=== PATIENT | female | born 1990 | race Caucasian/White ===

== ENCOUNTER 2017-12-10 18:37 | Emergency (ER) | payer OTHER ==
--- NOTE | 2017-12-10 19:33 | PD ---
HPI Chief Complaint Excessive watery vaginal discharge Date Seen: Dec 10, 2017 Time Seen: 19:25 Travel History International Travel<30 Days: No Contact w/Intl Traveler<30Days: No Known Affected Area: No History of Present Illness HPI 27-year-old white female at [address] Hurtado care presents combining of excessive watery vaginal discharge that she's noticed for some time but today was excessive and then went through her underwear and pain it's when she was at work today. Denies any bleeding. No abdominal pain and she says the baby is active Weeks Gestation: 21 Para: 1 : 3 Last Menstrual Period: Dec 10, 2017 Miscarriage: 1 History Obstetric History Obstetric History Vaginal delivery Social History Alcohol Use: No Tobacco Use: No Substance Abuse: No Review of Systems General / Constitutional: No: Fever, Weight Gain, Chills, Other Eyes: No: Diploplia, Blurred Vision, Visual changes, Pain, Photophobia HENT: No: Headaches, Vertigo, Lightheadedness Cardiovascular: No: Irregular Rhythm, Chest Pain or Discomfort, Palpitations, Tachycardia, Syncope, Varicosities, Edema, Cyanosis Respiratory: No: Cough, Short of Breath, Other Gastrointestinal: No: Nausea, Vomiting, Diarrhea Genitourinary: Discharge, No: Decreased Urinary Output, Oliguria Musculoskeletal: No: Limited ROM, Weakness, Cramping, Edema, Pain Skin: No Rash, No Itching, No Dryness, No Lumps, No Change in Pigmentation, No Change in Nails, No Alopecia, No Lesions Neurologic: No: Weakness, Dizziness, Syncope, Focal Abnormalities, Coordination Problem, Headache, Slurred Speech, Seizures Psychiatric: No: Depression, Suicidal Ideations, Homicidal Ideation Endocrine: No: Heat Intolerance, Cold Intolerance, Polydipsia, Polyuria, Other Physical Exam Narrative GENERAL: Well-nourished, well-developed patient. SKIN: Warm and dry. HEAD: Normocephalic and atraumatic. EYES: No scleral icterus. No injection or drainage. ENT: No nasal drainage noted. Mucous membranes pink. Airway patent. NECK: Supple, trachea midline. No JVD. CARDIOVASCULAR: Regular rate and rhythm without murmurs, gallops, or rubs. RESPIRATORY: Breath sounds equal bilaterally. No accessory muscle use. BREASTS: Bilateral exam showed no masses , no retractions, no nipple discharge. ABDOMEN/GI: Abdomen soft, non-tender, bowel sounds present, no rebound, no guarding Gravid to [-21] weeks size Fundal Height: [at umb-] GENITOURINARY: External Genitalia: intact and normal in appearance Speculum exam- minimal white discharge present. Bleeding seen no excessive fluid of any type, wet prep pending Cervix: [Normal closed noninfected-] Dilatation: [-Closed] Effacement: [-] Thick Station: [-3] Membranes: [intact ] amnio sure negative Uterine Contractions: [-None] FHT's: 158 EXTREMITIES: No cyanosis or edema. BACK: Nontender without obvious deformity. No CVA tenderness. NEUROLOGICAL: Awake and alert. Motor and sensory grossly within normal limits. Five out of 5 muscle strength in all muscle groups. Normal speech. Data Data Orders Orders Wet Prep Profile (12/10/17 19:25) Labs Urine dip on OB ED is negative MDM Interpretation(s) 27-year-old white female A1 at [address] Hurtado and presents complaining of excessive watery discharge to the point. that It saturated her panties and clothes today. Her amnio sure is negative, heart tones are 158 no contractions seen denies any bleeding. Back on exam was essentially negative was only minimal white discharge present cervix is normal thick and closed, minimal white discharge seen more or less typical of the progesterone effect in the vagina Diagnosis Diagnosis: Primary Impression: Vaginal discharge during in second trimester Disposition: 01 DISCHARGE HOME Condition: Stable Matt Linn II, MD Dec 10, 2017 19:33
== END 2017-12-10 20:41 | disposition home or self-care (01) ==
LOC: HOBED 18:37
DX: O26.892 Other specified pregnancy related conditions, second trimester (principal); N89.8 Other specified noninflammatory disorders of vagina; Z3A.21 21 weeks gestation of pregnancy
CPT/HCPCS: 84112; 87210; 99284

== ENCOUNTER 2018-03-24 17:10 | Emergency (ER) | payer OTHER ==
--- NOTE | 2018-03-24 18:35 | PD ---
HPI Chief Complaint pih Date Seen: March 24, 2018 Time Seen: 18:30 Travel History International Travel<30 Days: No Contact w/Intl Traveler<30Days: No Known Affected Area: No History of Present Illness HPI pt. is a @ [address] antony present for workup of increased bp in office. pt. seen for pnv and found to have htn. +FM, no lof/vb, no ctxs , no real/visual changes, no cp/sob, voiding w/o diff, no n/v. Weeks Gestation: 36 Para: 1 : 3 History Past Medical History Medical History: Denies Significant Hx Obstetric History Obstetric History , x 1, sab x 1 Past Surgical History Surgical History: No Previous Surgery Family History Family History: Negative Social History Alcohol Use: No Tobacco Use: No Substance Abuse: No Review of Systems Except as stated in HPI: all other systems reviewed are Neg Physical Exam Narrative GENERAL: Well-nourished, well-developed patient. SKIN: Warm and dry. HEAD: Normocephalic and atraumatic. EYES: No scleral icterus. No injection or drainage. ENT: No nasal drainage noted. Mucous membranes pink. Airway patent. NECK: Supple, trachea midline. No JVD. CARDIOVASCULAR: Regular rate and rhythm without murmurs, gallops, or rubs. RESPIRATORY: Breath sounds equal bilaterally. No accessory muscle use. ABDOMEN/GI: Abdomen soft, non-tender, bowel sounds present, no rebound, no guarding Gravid GENITOURINARY: External Genitalia: intact and normal in appearance Uterine Contractions: none FHT's: Category: 1 Reactive: + Variability: mod EXTREMITIES: No cyanosis or edema. BACK: Nontender without obvious deformity. No CVA tenderness. NEUROLOGICAL: Awake and alert. Motor and sensory grossly within normal limits. Five out of 5 muscle strength in all muscle groups. Normal speech. Data Data Vital Signs Reviewed: Yes Orders Orders Heart CONTINUOUS (03/24/18 18:20) Cbc No Diff, Includes Plts (03/24/18 18:20) Comprehensive Metabolic Panel (03/24/18 18:20) Uric Acid (03/24/18 18:20) Urinalysis - C+S If Indicated (03/24/18 18:20) Labs Laboratory Tests Test 03/24/18 17:40 [facility] Medical Record Reviewed: Yes Plan pt. w/o pih/preeclampsia. fht reassuring. pt. to be d/c to home. given precautions for return. all ? answered. f/u as sched. Diagnosis Diagnosis: Primary Impression: Preeclampsia Additional Impression: 36 weeks gestation of Disposition: DISCHARGE HOME Vladislav Dillard Jr., MD March 24, 2018 18:35
[2018-03-24 18:40] LABS: HEMATOCRIT 34.7 % (35.0-46.0); HEMOGLOBIN 11.7 GM/DL (11.6-15.3); MEAN CELL VOLUME 91.6 FL (80.0-100.0); MEAN CORPUSCULAR HGB CONC 33.9 % (32.0-36.0); MEAN PLATELET VOLUME 7.8 FL (7.0-11.0); PLATELET COUNT 283 TH/MM3 (150-450); RED BLOOD COUNT 3.78 MIL/MM3 (4.00-5.30); RED CELL DISTRIBUTION WIDTH 12.9 % (11.6-17.2)
[2018-03-24 18:42] LABS: BACTERIA, URINE RARE /hpf; BILIRUBIN, URINE NEG (NEG); BLOOD, URINE NEG (NEG); GLUCOSE,URINE NEG (NEG); KETONE, URINE TRACE mg/dL (NEG); NITRITE,URINE NEG (NEG); SQUAMOUS EPITHELIAL CELL URINE 1 /hpf (0-5); URINE COLOR YELLOW (YELLW/STRAW); URINE LEUKOCYTE ESTERASE NEG (NEG)
[2018-03-24 19:01] LABS: ALBUMIN 2.9 GM/DL (3.4-5.0); AST (GOT) 21 U/L (15-37); BLOOD UREA NITROGEN 8 MG/DL (7-18); CALCIUM 8.8 MG/DL (8.5-10.1); CHLORIDE 103 MEQ/L (98-107); CREATININE 0.59 MG/DL (0.50-1.00); GLOMERULAR FILTRATION RATE 121 ML/MIN (>89); GLUCOSE,RANDOM 67 MG/DL (74-106); SODIUM (NA) 137 MEQ/L (136-145)
[2018-03-24 19:05] LABS: ALKALINE PHOSPHATASE 120 U/L (45-117); ALT (GPT) 16 U/L (10-53); TOTAL BILIRUBIN ADULT 0.3 MG/DL (0.2-1.0)
== END 2018-03-24 19:18 | disposition home or self-care (01) ==
LOC: HOBED 17:10
DX: O14.93 Unspecified pre-eclampsia, third trimester (principal); Z3A.36 36 weeks gestation of pregnancy
CPT/HCPCS: 36415; 59025; 80053; 81001; 84550; 85027

== ENCOUNTER 2018-04-14 05:53 | Inpatient (IN) | payer OTHER ==
[2018-04-14] VITALS (28 sets, daily range): BP systolic 111–140; BP diastolic 68–85; PULSE 75–99; RESP 18–20; TEMP 98.1–100.1; O2SAT 96–97
[~2018-04-14] VITALS: Ht 165.1 cm; Wt 78.0 kg
[2018-04-14] MEDS ORDERED: PREN29TA PO (06:44)
[2018-04-14] MEDS ORDERED: zyrtec (06:46)
[2018-04-14 07:34] LABS: AUTOMATED NEUTROPHIL # 7.9 TH/MM3 (1.8-7.7); BASOPHIL % 0.3 % (0.0-2.0); EOSINOPHIL # 0.1 TH/MM3 (0-0.4); EOSINOPHIL % 1.1 % (0.0-4.0); HEMATOCRIT 36.6 % (35.0-46.0); HEMOGLOBIN 12.5 GM/DL (11.6-15.3); LYMPH % 19.7 % (9.0-44.0); LYMPHOCYTE # 2.2 TH/MM3 (1.0-4.8); MEAN CELL VOLUME 90.6 FL (80.0-100.0); MEAN CORPUSCULAR HGB CONC 34.2 % (32.0-36.0); MEAN PLATELET VOLUME 7.8 FL (7.0-11.0); MONO % 6.5 % (0.0-8.0); MONOCYTE # 0.7 TH/MM3 (0-0.9); NEUT % 72.4 % (16.0-70.0); PLATELET COUNT 293 TH/MM3 (150-450); RED BLOOD COUNT 4.04 MIL/MM3 (4.00-5.30); RED CELL DISTRIBUTION WIDTH 13.2 % (11.6-17.2); WHITE BLOOD COUNT 10.9 TH/MM3 (4.0-11.0)
[2018-04-14 07:37] LABS: BACTERIA, URINE RARE /hpf; BILIRUBIN, URINE NEG (NEG); BLOOD, URINE SMALL (NEG); GLUCOSE,URINE NEG (NEG); KETONE, URINE NEG (NEG); NITRITE,URINE NEG (NEG); SQUAMOUS EPITHELIAL CELL URINE 1 /hpf (0-5); URINE COLOR YELLOW (YELLW/STRAW); URINE LEUKOCYTE ESTERASE NEG (NEG)
[2018-04-14] MEDS ORDERED: LIDOCAINE HCL 1% 50 ML VIAL INFIL PRN (07:45)
[2018-04-14] MEDS ORDERED: CITRIC ACID-SODIUM CITRATE LIQ 30 ML UDC PO SCH (07:45)
[2018-04-14] MEDS ORDERED: ONDANSETRON ODT 4 MG TAB PO PRN ×2 (07:45→15:00)
[2018-04-14] MEDS ORDERED: NS 1000 ML IV PRN (07:45)
[2018-04-14] MEDS ORDERED: LACTATED RINGER'S 1000 ML BOLUS IV PRN (07:45)
[2018-04-14] MEDS ORDERED: MINERAL OIL 10 ML VIAL TOPICAL PRN (07:45)
[2018-04-14] MEDS ORDERED: NS 500 ML BOLUS IV PRN (07:45)
[2018-04-14] MEDS ORDERED: LACTATED RINGER'S 1000 ML IV SCH (07:45)
[2018-04-14] MEDS ORDERED: OXYTOCIN 30 UNITS 500ML PREMIX IV ONE (07:45)
[2018-04-14] MEDS ORDERED: LIDOCAINE HCL 1% 50 ML VIAL I-DERMAL PRN (07:45)
[2018-04-14] MEDS ORDERED: OXYTOCIN 30 UNITS/NS 500ML PREMIX IV PRN (09:15)
[2018-04-14] MEDS ORDERED: LIDOCAINE HCL 1% PF 30 ML VIAL INFIL PRN (11:45)
--- NOTE | 2018-04-14 14:56 | PD.OB.DELI ---
Anesthesia: Lidocaine local to perineum Episiotomy: Midline Vaginal Delivery: Normal Presentation: Occiput anterior Nuchal Cord: None Delayed cord clamping (45 sec): Yes Infant: Female Delivery date: Apr 14, 2018 Delivery time: 14:14 One Minute : 9 Five Minute : 9 Weight: 3450g Placenta: Spontaneous delivery Laceration: Episiotomy, 2 deg (second degree episiotomy and second degree left labial laceration) Repair: Vicryl running Estimated blood loss: 250cc Additional Information Skin tag removed from left labia. Baby Corrie Supervised by Brooke Leija MD R3 Apr 14, 2018 14:56
[2018-04-14] MEDS ORDERED: OXYTOCIN 30 UNITS-500ML PREMIX 500 ML IV SCH (15:00)
[2018-04-14] MEDS ORDERED: WITCH HAZEL 50%/GLYCERIN 12.5% 40 PAD JAR TOPICAL PRN (15:00)
[2018-04-14] MEDS ORDERED: SODIUM CHLORIDE 0.9% FLUSH 10 ML FLUSH IV FLUSH PRN (15:00)
[2018-04-14] MEDS ORDERED: oxyCODONE/ACETAMINOPHEN 5 MG/325 MG TAB PO PRN ×2 (15:00)
[2018-04-14] MEDS ORDERED: DOCUSATE SODIUM 50 MG/SENNA 8.6 MG TAB PO PRN (15:00)
[2018-04-14] MEDS ORDERED: ALUMINUM/MAGNESIUM/SIMETH 30 ML CUP PO PRN (15:00)
[2018-04-14] MEDS ORDERED: BENZOCAINE 20% TOPICAL SPRAY 60 ML CAN TOPICAL PRN (15:00)
--- NOTE | 2018-04-14 15:03 | HHI.HP ---
HPI Chief Complaint Induction of Labor Date Seen: Apr 14, 2018 Travel History International Travel<30 Days: No Contact w/Intl Traveler<30Days: No History of Present Illness HPI Patient is a 28 year old at 39-0/7 weeks gestation who presents today for induction of labor. She denies any vaginal bleeding or discharge. No gush or leaking of fluid. Positive movement. History Past Medical History Narrative Medical Asthma- last inhaler use 1 year ago Anxiety Obstetric History Obstetric History x 1 1 elective Past Surgical History Surgical History: No Previous Surgery Family History Family History: Negative Social History Alcohol Use: No Tobacco Use: No Substance Abuse: No Allergies-Medications (Allergen,Severity, Reaction): Coded Allergies: No Known Allergies (Unverified , 04/14/18) Home Meds Reported Medications [zyrtec] No Conflict Check 04/14/18 Vit-Iron Carbonyl ( Plus Iron 29-1 mg) 29 Mg Iron-1 Mg Tab, 1 TAB PO DAILY for Nutritional Supplement, #30 TAB 0 Refills 04/14/18 Review of Systems Except as stated in HPI: all other systems reviewed are Neg General / Constitutional: No: Fever, Chills Eyes: No: Visual changes HENT: No: Headaches Respiratory: No: Cough, Short of Breath Gastrointestinal: No: Nausea, Abdominal Pain Genitourinary: No: Pelvic Pain, Discharge, Vaginal Bleeding Musculoskeletal: No: Edema Neurologic: No: Headache Psychiatric: No: Substance Abuse Physical Exam Vital Signs Date Time Temp Pulse Resp B/P (MAP) Pulse Ox O2 Delivery O2 Flow Rate FiO2 04/14/18 13:45 20 04/14/18 13:40 95 135/85 (102) 04/14/18 13:15 20 04/14/18 13:14 77 128/80 (96) 04/14/18 12:45 98.8 04/14/18 12:45 18 04/14/18 12:44 83 130/80 (97) 04/14/18 11:30 20 04/14/18 11:30 98.4 04/14/18 11:29 78 122/83 (96) 04/14/18 10:45 20 04/14/18 10:31 84 111/72 (85) 04/14/18 09:29 98.1 18 04/14/18 09:27 77 138/79 (98) Narrative GENERAL: Well-nourished, well-developed patient. SKIN: Warm and dry. HEAD: Normocephalic and atraumatic. EYES: No scleral icterus. No injection or drainage. ENT: No nasal drainage noted. Mucous membranes pink. Airway patent. NECK: Supple, trachea midline. No JVD. CARDIOVASCULAR: Regular rate and rhythm without murmurs, gallops, or rubs. RESPIRATORY: Breath sounds equal bilaterally. No accessory muscle use. ABDOMEN/GI: Abdomen soft, non-tender, bowel sounds present, no rebound, no guarding Gravid to 39 weeks size GENITOURINARY: External Genitalia: intact and normal in appearance Cervix: posterior Dilatation: 4 Effacement: 80 Station: -1 Presentation: vertex Membranes: [intact or ruptured] Uterine Contractions: irregular FHT's: Category: I Baseline: 138 Reactive: + Variability: moderate Decels: none EXTREMITIES: No cyanosis or edema. BACK: Nontender without obvious deformity. NEUROLOGICAL: Awake and alert. Motor and sensory grossly within normal limits. Normal speech. Caprini VTE Risk Assessment Caprini VTE Risk Assessment: No/Low Risk (score <= 1) Caprini Risk Assessment Model Point Value = 1 Point Value = 2 Point Value = 3 Point Value = 5 Age 41-60 Minor surgery BMI > 25 kg/m2 Swollen legs Varicose veins or History of unexplained or recurrent spontaneous Oral contraceptives or hormone replacement Sepsis (< 1 month) Serious lung disease, including pneumonia (< 1 month) Abnormal pulmonary function Acute myocardial infarction Congestive heart failure (< 1 month) History of inflammatory bowel disease Medical patient at bed rest Age 61-74 Arthroscopic surgery Major open surgery (> 45 min) Laparoscopic surgery (> 45 min) Malignancy Confined to bed (> 72 hours) Immobilizing plaster cast Central venous access Age >= 75 History of VTE Family history of VTE Factor V Leiden Prothrombin [id number] Lupus anticoagulant Anticardiolipin antibodies Elevated serum homocysteine Heparin-induced thrombocytopenia Other congenital or acquired thrombophilia Stroke (< 1 month) Elective arthroplasty Hip, pelvis, or leg fracture Acute spinal cord injury (< 1 month) Prophylaxis Regimen Total Risk Factor Score Risk Level Prophylaxis Regimen 0-1 Low Early ambulation 2 Moderate Order ONE of the following: *Sequential Compression Device (SCD) *Heparin 5000 units SQ BID 3-4 Higher Order ONE of the following medications: *Heparin 5000 units SQ TID *Enoxaparin/Lovenox 40 mg SQ daily (WT < 150 kg, CrCl > 30 mL/min) *Enoxaparin/Lovenox 30 mg SQ daily (WT < 150 kg, CrCl > 10-29 mL/min) *Enoxaparin/Lovenox 30 mg SQ BID (WT < 150 kg, CrCl > 30 mL/min) AND/OR *Sequential Compression Device (SCD) 5 or more Highest Order ONE of the following medications: *Heparin 5000 units SQ TID (Preferred with Epidurals) *Enoxaparin/Lovenox 40 mg SQ daily (WT < 150 kg, CrCl > 30 mL/min) *Enoxaparin/Lovenox 30 mg SQ daily (WT < 150 kg, CrCl > 10-29 mL/min) *Enoxaparin/Lovenox 30 mg SQ BID (WT < 150 kg, CrCl > 30 mL/min) AND *Sequential Compression Device (SCD) Data Data Vital Signs Reviewed: Yes Orders Orders Admit To Inpatient (04/14/18 ) Code Status (04/14/18 07:19) Complete Blood Count With Diff (04/14/18 07:19) Hold Clot (04/14/18 07:19) Abo/Rh Blood Type (04/14/18 07:19) Urinalysis - C+S If Indicated (04/14/18 07:19) Ob/Psych Drug Screen, Urine (04/14/18 07:19) Resp Oxygen Non Rebreathe Mask (04/14/18 ) Lactated Ringer's 1000 Ml Inj (Lr 1000 M (04/14/18 07:45) Lactated Ringer's 1000 Ml Inj (Lr 1000 M (04/14/18 07:45) Sodium Chlorid 0.9% 500 Ml Inj (Ns 500 M (04/14/18 07:45) Sodium Chlor 0.9% 1000 Ml Inj (Ns 1000 M (04/14/18 07:45) Lidocaine 1% Inj (50 Ml) (Xylocaine 1% I (04/14/18 07:45) Citric Acid-Sodium Citrate Liq (Bicitra (04/14/18 07:45) Ondansetron Odt (Zofran Odt) (04/14/18 07:45) Fentanyl Inj (Fentanyl Inj) (04/14/18 07:45) Fentanyl Inj (Fentanyl Inj) (04/14/18 07:45) Oxytocin 30 Units-500ml Premix (Pitocin (04/14/18 07:45) Lidocaine 1% Inj (50 Ml) (Xylocaine 1% I (04/14/18 07:45) Light Mineral Oil (Muri-Lube Oil) (04/14/18 07:45) Oxytocin 30 Units-500ml Premix (Pitocin (04/14/18 09:15) Lidocaine Pf 1% Inj (Xylocaine-Mpf 1% In (04/14/18 11:45) Vital Signs (Adult) .QSHIFT (04/14/18 14:48) Activity Oob Ad Shital (04/14/18 14:48) Ice / Cold Pack PRN (04/14/18 14:48) Discontinue Iv (04/14/18 14:48) Sitz Bath PRN (04/14/18 14:48) ^ Massage (04/14/18 14:48) ^ Rhogam (04/14/18 14:48) Urinary Catheter Management .PRN (04/14/18 14:48) Diet Regular Basic (04/14/18 Dinner) Sodium Chloride 0.9% Flush (Ns Flush) (04/14/18 21:00) Sodium Chloride 0.9% Flush (Ns Flush) (04/14/18 15:00) Oxytocin 30 Units-500ml Premix (Pitocin (04/14/18 15:00) Acetaminophen (Tylenol) (04/14/18 15:00) Ibuprofen (Motrin) (04/14/18 15:00) Oxycodone-Acetamin 5-325 Mg (Percocet (04/14/18 15:00) Oxycodone-Acetamin 5-325 Mg (Percocet (04/14/18 15:00) Benzocaine 20% Top Spr (Americaine 20% T (04/14/18 15:00) Witch Carmenza-Glycerin Pad (Tucks Pads) (04/14/18 15:00) Docusate Sodium-Senna ([place]-Colace) (04/14/18 15:00) Zolpidem (Ambien) (04/14/18 21:00) Jlpsbul-Hcdsb-Vpdxycl Inj (M-M-R Ii Inj) (04/14/18 16:00) Wafn-Qzb-Lqhfnn (Booster) Inj (Boostrix (04/14/18 16:00) Al-Mag Hy-Si 40-40-4 Mg/Ml Liq (Mag-Al P (04/14/18 15:00) Ondansetron Odt (Zofran Odt) (04/14/18 15:00) Group B Strep: Negative Labs Laboratory Tests Test 04/14/18 06:45 White Blood Count 10.9 Red Blood Count 4.04 Hemoglobin 12.5 Hematocrit 36.6 Mean Corpuscular Volume 90.6 Mean Corpuscular Hemoglobin 31.0 Mean Corpuscular Hemoglobin Concent 34.2 Red Cell Distribution Width 13.2 Platelet Count 293 Mean Platelet Volume 7.8 Neutrophils (%) (Auto) 72.4 Lymphocytes (%) (Auto) 19.7 Monocytes (%) (Auto) 6.5 Eosinophils (%) (Auto) 1.1 Basophils (%) (Auto) 0.3 Neutrophils # (Auto) 7.9 Lymphocytes # (Auto) 2.2 Monocytes # (Auto) 0.7 Eosinophils # (Auto) 0.1 Basophils # (Auto) 0.0 CBC Comment DIFF FINAL Differential Comment Urine Color YELLOW Urine Turbidity CLEAR Urine pH 6.0 Urine Specific [place] 1.014 Urine Protein NEG Urine Glucose (UA) NEG Urine Ketones NEG Urine Occult Blood SMALL Urine Nitrite NEG Urine Bilirubin NEG Urine Urobilinogen LESS THAN 2 Urine Leukocyte Esterase NEG Urine RBC 3 Urine WBC 2 Urine Squamous Epithelial Cells 1 Urine Bacteria RARE Microscopic Urinalysis Comment CULT NOT INDICATED Urine Opiates Screen NEG Urine Barbiturates Screen NEG Urine Amphetamines Screen NEG Urine Benzodiazepines Screen NEG Urine Cocaine Screen NEG Urine Cannabinoids Screen NEG Assessment/Plan Assessment and Plan 28 year old at 39-0/7 weeks gestation. 1. IUP- Category I tracing, reassuring. 2. Induction of labor- AROM and Pitocin. 3. GBS negative. Brooke Powell Dr., MD R3 Apr 14, 2018 15:03
[2018-04-14] MEDS: IBUPROFEN 800 MG TAB PO PRN (15:42)
[2018-04-14] MEDS ORDERED: MEASLES, MUMPS, RUBELLA VACCINE 0.5 ML VIAL SQ ONE (16:00)
[2018-04-14] MEDS ORDERED: DIPHTH/TETANUS/ACEL PERTUSSIS (BOOSTER) 0.5 ML VIAL/PFS IM ONE (16:00)
[2018-04-14] MEDS ORDERED: ZOLPIDEM TARTRATE 5 MG TAB PO PRN (21:00)
[2018-04-14] MEDS ORDERED: SODIUM CHLORIDE 0.9% FLUSH 10 ML FLUSH IV FLUSH SCH (21:00)
[2018-04-14] MEDS: ACETAMINOPHEN 325 MG TAB PO PRN (22:36)
[2018-04-15] MEDS: ACETAMINOPHEN 325 MG TAB PO PRN ×4 (03:06→18:51)
[2018-04-15] MEDS: IBUPROFEN 800 MG TAB PO PRN ×3 (03:07→18:50)
--- NOTE | 2018-04-15 10:01 | HHI.OB ---
Subjective Post Day: 1 Objective Vitals/I&O Vital Signs Date Time Temp Pulse Resp B/P (MAP) Pulse Ox O2 Delivery O2 Flow Rate FiO2 04/14/18 21:10 98.3 83 18 125/68 (87) 04/14/18 18:06 99.3 04/14/18 17:08 119/76 (90) 04/14/18 17:08 98.6 99 20 97 04/14/18 16:31 100.1 81 04/14/18 16:30 20 140/82 (101) 96 04/14/18 16:05 18 04/14/18 16:00 89 119/70 (86) 04/14/18 15:50 18 04/14/18 15:45 79 116/72 (87) 04/14/18 15:35 20 04/14/18 15:30 75 111/72 (85) 04/14/18 15:20 20 04/14/18 15:15 83 120/82 (95) 04/14/18 15:02 18 04/14/18 15:00 86 117/77 (90) 04/14/18 14:50 89 122/81 (95) 04/14/18 14:50 99.0 20 04/14/18 13:45 20 04/14/18 13:40 95 135/85 (102) 04/14/18 13:15 20 04/14/18 13:14 77 128/80 (96) 04/14/18 12:45 98.8 04/14/18 12:45 18 04/14/18 12:44 83 130/80 (97) 04/14/18 11:30 20 04/14/18 11:30 98.4 04/14/18 11:29 78 122/83 (96) 04/14/18 10:45 20 04/14/18 10:31 84 111/72 (85) Objective Remarks GENERAL: Well-nourished, well-developed patient. CARDIOVASCULAR: Regular rate and rhythm without murmurs, gallops, or rubs. RESPIRATORY: Breath sounds equal bilaterally. No accessory muscle use. ABDOMEN/GI: Abdomen soft, non-tender. Fundus: Firm, non-tender at umbilicus. GENITOURINARY: Light to moderate bleeding. EXTREMITIES: No cyanosis or edema, non-tender, without signs of DVT. Medications and IVs Current Medications Medications (Trade) Dose Ordered Sig/Bobbi Route Start Time Stop Time Status Last Admin (NS Flush) 2 ml BID IV FLUSH 04/14/18 21:00 (NS Flush) 2 ml UNSCH PRN IV FLUSH 04/14/18 15:00 (Tylenol) 650 mg Q4H PRN PO 04/14/18 15:00 04/15/18 08:59 (Motrin) 800 mg Q8H PRN PO 04/14/18 15:00 04/15/18 03:07 (Percocet 5-325 Mg) 1 tab Q4H PRN PO 04/14/18 15:00 (Percocet 5-325 Mg) 2 tab Q4H PRN PO 04/14/18 15:00 (Americaine 20% Top Spr) 1 spray Q4H PRN TOPICAL 04/14/18 15:00 04/14/18 22:37 (Tucks Pads) 1 applic QID PRN TOPICAL 04/14/18 15:00 04/14/18 22:37 ([place]-Colace) 2 tab Q12H PRN PO 04/14/18 15:00 04/14/18 22:36 (Ambien) 5 mg HS PRN PO 04/14/18 21:00 (Mag-Al Plus Susp Liq) 15 ml Q8H PRN PO 04/14/18 15:00 (Zofran Odt) 4 mg Q6H PRN PO 04/14/18 15:00 Assessment/Plan Problem List: (1) Normal vaginal delivery ICD Codes: O80 - Encounter for full-term uncomplicated delivery Assessment and Plan pt doing well pain well managed with oral pain medication pt and bonding with infant routine care Discharge Planning ma home tomorrow Cathryn Hubbard Apr 15, 2018 10:01
[2018-04-15 20:00] VITALS: BP 107/66; PULSE 80; RESP 18; TEMP 98.1; O2SAT 96
[2018-04-16] MEDS: ACETAMINOPHEN 325 MG TAB PO PRN ×2 (01:12→08:22)
[2018-04-16] MEDS: IBUPROFEN 800 MG TAB PO PRN (03:10)
[2018-04-16 08:12] VITALS: BP 131/86; PULSE 74; RESP 20; TEMP 98.1; O2SAT 96
--- NOTE | 2018-04-16 09:41 | HHI.OB ---
Subjective Post Day: 2 Objective Vitals/I&O Vital Signs Date Time Temp Pulse Resp B/P (MAP) Pulse Ox O2 Delivery O2 Flow Rate FiO2 04/16/18 08:12 98.1 74 20 131/86 (101) 96 04/15/18 20:00 98.1 80 18 107/66 (80) 96 Objective Remarks GENERAL: Well-nourished, well-developed patient. CARDIOVASCULAR: Regular rate and rhythm without murmurs, gallops, or rubs. RESPIRATORY: Breath sounds equal bilaterally. No accessory muscle use. ABDOMEN/GI: Abdomen soft, non-tender. Fundus: Firm, non-tender at umbilicus. GENITOURINARY: Light to moderate bleeding. EXTREMITIES: No cyanosis or edema, non-tender, without signs of DVT. Medications and IVs Current Medications Medications (Trade) Dose Ordered Sig/Bobbi Route Start Time Stop Time Status Last Admin (NS Flush) 2 ml BID IV FLUSH 04/14/18 21:00 (NS Flush) 2 ml UNSCH PRN IV FLUSH 04/14/18 15:00 (Tylenol) 650 mg Q4H PRN PO 04/14/18 15:00 04/16/18 08:22 (Motrin) 800 mg Q8H PRN PO 04/14/18 15:00 04/16/18 03:10 (Percocet 5-325 Mg) 1 tab Q4H PRN PO 04/14/18 15:00 (Percocet 5-325 Mg) 2 tab Q4H PRN PO 04/14/18 15:00 (Americaine 20% Top Spr) 1 spray Q4H PRN TOPICAL 04/14/18 15:00 04/14/18 22:37 (Tucks Pads) 1 applic QID PRN TOPICAL 04/14/18 15:00 04/14/18 22:37 ([place]-Colace) 2 tab Q12H PRN PO 04/14/18 15:00 04/14/18 22:36 (Ambien) 5 mg HS PRN PO 04/14/18 21:00 (Mag-Al Plus Susp Liq) 15 ml Q8H PRN PO 04/14/18 15:00 (Zofran Odt) 4 mg Q6H PRN PO 04/14/18 15:00 Assessment/Plan Problem List: (1) Normal vaginal delivery ICD Codes: O80 - Encounter for full-term uncomplicated delivery Assessment and Plan pt doing well pain well managed with oral pain medication routine care Discharge Planning dc home today Cathryn Hubbard Apr 16, 2018 09:41
--- NOTE | 2018-04-16 09:43 | HHI.DCPOC ---
Discharge Care Plan Diagnosis: (1) Normal vaginal delivery Your Health Problems Are: Vaginal delivery Report Symptoms to Your Doctor -Temperature above 100.5 degrees -Redness, of incision or excessive or foul smelling drainage -Unusual pain or calf pain -Increased vaginal bleeding -Painful or difficulty urinating -Feelings of extreme sadness or anxiety after 2 weeks Goals to Promote Your Health * To prevent worsening of your condition and complications * To maintain your health at the optimal level Directions to Meet Your Goals Take your medications as prescribed Follow your dietary instruction Follow activity as directed Ensure plenty of rest for recovery Drink fluids for hydration Keep your appointments as scheduled Take your immunizations and boosters as scheduled If your symptoms worsen call your PCP, if no PCP go to Urgent Care Center or Emergency Room Smoking is Dangerous to Your Health. Avoid second hand smoke Call the 24-hour crisis hotline for domestic abuse at Cathryn Hubbard Apr 16, 2018 09:43
--- NOTE | 2018-04-16 09:45 | HHI.DS ---
Admission Date Apr 14, 2018 at 05:53 Discharge Date: Apr 16, 2018 Admitting Diagnosis term induction of labor Diagnosis: (1) Normal vaginal delivery Diagnosis: Principal ICD Codes: O80 - Encounter for full-term uncomplicated delivery Delivery Date: Apr 14, 2018 Vaginal Delivery: Normal Infant: Female Brief History Patient is a 28 year old at 39-0/7 weeks gestation who presents today for induction of labor. She denies any vaginal bleeding or discharge. No gush or leaking of fluid. Positive movement. Hospital Course term induction of labor routine care Pt Condition on Discharge: Good Discharge Disposition: Discharge Home Discharge Instructions Diet Instructions: As Tolerated, No Restrictions Additional Diet Instructions: Drink at least 8 - 16 oz bottles of water a day Activities You Can Perform: Shower Only-No Bath, Sitz Bath Activities to Avoid: Lifting/Bending, Sexual Activity Additional Activity Instruc.: No driving until off pain medications Do not lift anything heavier than your baby in an infant carrier Follow up Referrals: [facility] - 2 Weeks @ [facility] Continued Medications: Vit-Iron Carbonyl ( Plus Iron 29-1 mg) 29 Mg Iron-1 Mg Tab 1 TAB PO DAILY for Nutritional Supplement, #30 TAB 0 Refills [zyrtec] () Cathryn Hubbard Apr 16, 2018 09:45
== END 2018-04-16 11:25 | disposition home or self-care (01) | DRG 775 ==
LOC: H2EA 05:53 → H1EA 16:18
PROVIDERS: ADMIT Obstetrics & Gynecology; ATTEND Obstetrics & Gynecology
PROC: 10E0XZZ Delivery of Products of Conception, External Approach (ICD-10-PCS; principal; 2018-04-14)
PROC: 0KQM0ZZ Repair Perineum Muscle, Open Approach (ICD-10-PCS; 2018-04-14)
PROC: 0W8NXZZ Division of Female Perineum, External Approach (ICD-10-PCS; 2018-04-14)
PROC: 0HB9XZZ Excision of Perineum Skin, External Approach (ICD-10-PCS; 2018-04-14)
PROC: 10907ZC Drainage of Amniotic Fluid, Therapeutic from Products of Conception, Via Natural or Artificial Opening (ICD-10-PCS; 2018-04-14)
PROC: 3E033VJ Introduction of Other Hormone into Peripheral Vein, Percutaneous Approach (ICD-10-PCS; 2018-04-14)
DX: O70.1 Second degree perineal laceration during delivery (principal); Z37.0 Single live birth; O99.344 Other mental disorders complicating childbirth; F41.9 Anxiety disorder, unspecified; J45.909 Unspecified asthma, uncomplicated; Z3A.39 39 weeks gestation of pregnancy; O99.52 Diseases of the respiratory system complicating childbirth
CPT/HCPCS: 80307; 81001; 85025; 86900; 86901; G0481; J2590; J3010; J7120